=== PATIENT | female | born 1980 | race Caucasian/White ===

== ENCOUNTER → 2019-12-22 16:03 | Outpatient (CLI) | payer OTHER, SELFPAY ==
[2019-12-23 07:55] LABS: COVID19 Sendout Not Detected (Not Detect)
== END ==
PROVIDERS: Visit Provider Physician Assistant
DX: Z03.818 Encounter for observation for suspected exposure to other biological agents ruled out (principal)
CPT/HCPCS: 87635

== ENCOUNTER → 2020-08-24 16:46 | Outpatient (CLI) | payer OTHER, SELFPAY ==
[2020-08-24 17:26] LABS: COVID19 -Nasal RAPID Negative (Negative)
== END ==
PROVIDERS: Visit Provider Physician Assistant
DX: Z20.822 Contact with and (suspected) exposure to COVID-19 (principal)
CPT/HCPCS: 87635